=== PATIENT | female | born 1925 | race Caucasian/White ===

== ENCOUNTER → 2016-08-03 | Outpatient (CLI) | payer MEDICARE, BC ==
[~2016-08-03] MED LIST: ADVAIR 250-501 EACH INH; AMBIEN10 MG PO; BIOTIN5 M1 PO; CALAN80 MG PO; CITRACAL950 MG PO; COZAAR100 MG PO; DRISDOL 5050000 UNIT PO; FLONASE 50 MCG/16 GM NOSE; FLOVENT 110 M110 MCG INH; LIPITOR20 M1 PO; NEURONTIN100 MG PO; ROBAXIN500 MG PO; SODIUM BICARBO650 MG PO; THERAGRAN-M1 TAB PO; TYLENOL325 MG PO; ULTRAM50 MG PO; XANAX0.25 MG PO; ZETIA10 MG PO; ZINC30 MG PO
== END | disposition disaster alternative care site (69) ==
LOC: GRAD 11:30
DX: M13.862 Other specified arthritis, left knee (principal); M11.262 Other chondrocalcinosis, left knee; M25.462 Effusion, left knee; M25.562 Pain in left knee